=== PATIENT | female | born 1965 | race Caucasian/White ===

== ENCOUNTER → 2021-05-07 | Outpatient (CLI) | payer OTHER | LOC: KOH-I 14:35 | DX: R30.0 Dysuria (principal); R31.9 Hematuria, unspecified; N23 Unspecified renal colic; R14.0 Abdominal distension (gaseous) | CPT/HCPCS: 72100; 74018 ==

== ENCOUNTER → 2021-05-10 | Outpatient (CLI) | payer OTHER | LOC: KOH-I 10:49 | DX: N83.299 Other ovarian cyst, unspecified side (principal) | CPT/HCPCS: 76856 ==

== ENCOUNTER → 2021-12-12 | Outpatient (CLI) | payer OTHER | LOC: KOH-I 08:08 | DX: M54.6 Pain in thoracic spine (principal); M25.512 Pain in left shoulder; M47.812 Spondylosis without myelopathy or radiculopathy, cervical region; M47.814 Spondylosis without myelopathy or radiculopathy, thoracic region | CPT/HCPCS: 72050; 72070; 73030 ==